=== PATIENT | female | born 1945 | race Caucasian/White ===

== ENCOUNTER 2019-07-13 09:56 | Outpatient (CLI) | payer MEDICARE ==
--- NOTE | 2019-07-13 10:49 | CT ---
CT BRAIN NONCONTRAST: DATE: 07/13/2019 HISTORY: 74-year-old female with G3 0.1 Alzheimer's disease with late onset. Memory loss. FINDINGS: There is no evidence of acute intra-axial or extra-axial hemorrhage. There is no midline shift or any other mass effect. There is no extra-axial fluid collection. There is no evidence of obstructive hydrocephalus. Calvarium is intact. 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 There is diffuse brain parenchymal volume loss, typical for this age group. IMPRESSION: 1. No acute intracranial findings. 2. 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
== END 2019-07-13 09:57 | disposition home or self-care (01) ==
LOC: SCSCT 09:56
PROVIDERS: ATTEND Psychiatry & Neurology Neurology
DX: G30.1 Alzheimer's disease with late onset (principal)
CPT/HCPCS: 70450